=== PATIENT | male | born 1960 | race Caucasian/White ===

== ENCOUNTER 2016-07-28 21:22 | Emergency (ER) | payer SELFPAY ==
[2016-07-28 21:32] VITALS: RESP 18
[2016-07-28] MEDS ORDERED: Sodium Chloride 0.9% 1,000 ML IV ONE (22:03)
[2016-07-28] MEDS ORDERED: Iohexol 240 (50 ml) PO ONE (22:05)
--- NOTE | 2016-07-28 22:13 | C.PDOC ---
History Of Present Illness 56 year old male presents to the ED with complaints of generalized abdominal pain that began yesterday with associated diarrhea. Patient denies vomiting, dysuria, or hematuria. Chief Complaint (Nursing): Abdominal Pain History Per: Patient History/Exam Limitations: no limitations Onset/Duration Of Symptoms: Days (began yesterday) Current Symptoms Are (Timing): Still Present Location Of Pain/Discomfort: Diffuse Radiation Of Pain To:: None Quality Of Discomfort: "Pain" Associated Symptoms: Diarrhea. denies: Fever, Chills, Nausea, Vomiting Recent travel outside of the [place]: No Past Medical History Reviewed: Historical Data, Nursing Documentation, Vital Signs Vital Signs: Last Vital Signs Temp 97.6 F 07/29/16 01:35 Pulse 73 07/29/16 01:35 Resp 18 07/29/16 01:35 BP 113/71 07/29/16 01:35 Pulse Ox 100 07/29/16 01:36 - Medical History PMH: COPD, Emphysema Family History: States: Unknown Family Hx - Social History Hx Alcohol Use: No Hx Substance Use: No Review Of Systems Constitutional: Negative for: Fever, Chills, Sweats Cardiovascular: Negative for: Chest Pain, Palpitations Respiratory: Negative for: Cough, Shortness of Breath Gastrointestinal: Positive for: Abdominal Pain, Diarrhea. Negative for: Nausea , Vomiting Genitourinary: Negative for: Dysuria, Hematuria Neurological: Negative for: Headache Physical Exam - Physical Exam Appears: Non-toxic, In Acute Distress (patient appears to be in pain) Skin: Warm, Dry Head: Atraumatic Oral Mucosa: Moist Neck: Supple Chest: Symmetrical, No Deformity Cardiovascular: Rhythm Regular Respiratory: No Rales, No Rhonchi, No Stridor, No Wheezing Gastrointestinal/Abdominal: Soft, Tenderness (tenderness to the mid-abdominal region), No Mass (no palpable abnormal mass upon examination ), No Distention, No Guarding, No Rebound, Other (presence of bilateral inguinal hernia,left sided slightly firm.) Extremity: Normal ROM, No Tenderness Neurological/Psych: Oriented x3 ED Course And Treatment - Laboratory Results Result Diagrams: 07/28/16 22:17 07/28/16 22:17 O2 Sat by Pulse Oximetry: 100 (room air) - CT Scan/US CT Abdomen and Pelvis With Intravenous Contrast Other Rad Studies (CT/US): Interpreted By Me, Read By Radiologist CT/US Interpretation: IMPRESSION: 1. High suspicion for colitis and/or enterocolitis. 2. Bilateral fat containing inguinal hernias, left larger than right, with induration of the fat. Please. correlate whether these may contribute to symptoms. Normal appendix. No hydronephrosis. Incompletely characterized left renal lesions at least one of which measures solid Hounsfield units. within limits of the study. Lung findings as above. Please refer to the final report, as additional comparisons or other additional information may be. available at that time. Progress Note: On re-evaluation patient is asymptomatic. Exam shows bilateral hernia that is not obstructed and no tenderness. Patient now states feeling mild epigastric pain. Reduction of left inguinal hernia performed. Reevaluation Time: 01:00 Reassessment Condition: Improved Disposition Counseled Patient/Family Regarding: Diagnosis - Disposition Referrals: Sury Davis MD [Primary Care Provider] - Disposition: HOME/ ROUTINE Disposition Time: 01:24 Condition: STABLE Prescriptions: Ranitidine HCl [Zantac] 150 mg PO BID #30 tablet Instructions: Gastritis (GEN), Inguinal Hernia (ED), Abdominal Pain (ED) - POA Present On Arrival: None - Clinical Impression Clinical Impression: Abdominal pain, Gastritis, Inguinal hernia, bilateral - Scribe Statement The provider has reviewed the documentation as recorded by the Izabellaibjessica Guevara All medical record entries made by the Izabellaibjessica were at my direction and personally dictated by me. I have reviewed the chart and agree that the record accurately reflects my personal performance of the history, physical exam, medical decision making, and the department course for this patient. I have also personally directed, reviewed, and agree with the discharge instructions and disposition.
[2016-07-28 22:20] LABS: BASO % 0.5 % (0.0-2.0); EOS # 0.3 K/uL (0.0-0.7); EOS % 3.3 % (0.0-4.0); HEMATOCRIT 42.3 % (35.0-51.0); LYMPH # 2.6 K/uL (1.0-4.3); LYMPH % 30.9 % (20.0-40.0); MEAN CELL VOLUME 78.1 fL (80.0-94.0); MEAN CORPUSCULAR HEMOGLOBIN 25.7 pg (27.0-31.0); MEAN CORPUSCULAR HGB CONC 32.9 g/dL (33.0-37.0); MEAN PLATELET VOLUME 8.1 fL (7.2-11.7); MONO # 0.7 K/uL (0.0-0.8); MONO % 7.8 % (0.0-10.0); NRBC % 0.1 % (0.0-2.0); RED CELL DISTRIBUTION WIDTH 13.4 % (11.5-14.5); WHITE BLOOD COUNT 8.6 K/uL (4.8-10.8)
[2016-07-28] MEDS ORDERED: Iohexol 240 (50 ml) ONE (22:22)
[2016-07-28] MEDS ORDERED: Sodium Chloride 0.9% 1,000 ML ONE (22:22)
[2016-07-28 22:28] LABS: CHLORIDE 97 mmol/L (98-107); POTASSIUM 2.6 mmol/L (3.6-5.2); SODIUM 134 mmol/L (132-148)
[2016-07-28 22:30] LABS: BILIRUBIN,TOTAL 0.7 mg/dL (0.2-1.3); CARBON DIOXIDE 27 mmol/L (22-30); GFR AFRICAN-AMERICAN > 60
[2016-07-28 22:31] LABS: ALB/GLOB RATIO 1.4 (1.0-2.1); ALKALINE PHOSPHATASE 43 U/L (38-126); ALT/SGPT 20 U/L (21-72); AST/SGOT 21 U/L (17-59); BLOOD UREA NITROGEN 19 mg/dL (9-20); CALCIUM 9.1 mg/dl (8.6-10.4); GLUCOSE,RANDOM 102 mg/dL (75-110); TOTAL PROTEIN 6.8 g/dL (6.3-8.3)
[2016-07-28] MEDS ORDERED: Iodixanol 320 MG/ML 100 ML BOTTLE IV ONE (23:04)
[2016-07-29 01:02] LABS: RBC URINE < 1 /hpf (0-3); URINE BILIRUBIN NEGATIVE (NEGATIVE); URINE BLOOD NEGATIVE (NEGATIVE); URINE COLOR Straw (YELLOW); URINE GLUCOSE (UA) NORMAL (Normal); URINE KETONE NEGATIVE (NEGATIVE); URINE LEUKOCYTE ESTERASE NEG Leu/uL (Negative); URINE PROTEIN NEGATIVE (NEGATIVE); URINE UROBILINOGEN NORMAL mg/dL (0.2-1.0); WBC URINE < 1 /hpf (0-5)
[2016-07-29 01:35] VITALS: BP 113/71; PULSE 73; TEMP 97.6
[2016-07-29 01:37] VITALS: O2SAT 100
--- NOTE | 2016-07-29 09:47 | CT ---
PROCEDURE: CT Abdomen and Pelvis with contrast HISTORY: severe abd pain-mostly on bilateral lower quadrant COMPARISON: None. TECHNIQUE: Contrast dose: 100 mL Visipaque 320 Radiation dose: Total exam DLP = 313.11 mGy-cm. This CT exam was performed using one or more of the following dose reduction techniques: Automated exposure control, adjustment of the mA and/or kV according to patient size, and/or use of iterative reconstruction technique. FINDINGS: LOWER THORAX: 5 mm subpleural nodule in anterior segment right upper lobe. No followup evaluation required as per Fleischner society criteria. Minimal dependent atelectasis right lower lobe, posterior. LIVER: Unremarkable. No gross lesion or ductal dilatation. GALLBLADDER AND BILE DUCTS: Unremarkable. PANCREAS: Unremarkable. No gross lesion or ductal dilatation. SPLEEN: Unremarkable. ADRENALS: Unremarkable. No mass. KIDNEYS AND URETERS: Two rounded low-density left renal masses, 2.2 cm upper pole measuring 30 Hounsfield units and 1.8 cm left lower pole, measuring 19 Hounsfield units. Correlation with ultrasound on a nonemergent basis is advised. No calculus or hydronephrosis. VASCULATURE: Unremarkable. No aortic aneurysm. BOWEL: Circumferential mural thickening of the descending and sigmoid colon consistent with nonspecific colitis. No bowel obstruction. No other abnormal bowel loops. APPENDIX: Normal appendix. PERITONEUM: Small umbilical hernia containing only fat. Left inguinal hernia containing mesenteric fat. No herniated bowel. LYMPH NODES: Unremarkable. No enlarged lymph nodes. BLADDER: Unremarkable. REPRODUCTIVE: Normal prostate BONES: No acute fracture. Mild lumbar dextroscoliosis. Right mis sacralization right L5 vertebra. Developmental variant. OTHER FINDINGS: None. IMPRESSION: Nonspecific colitis involving descending and sigmoid colon. Rule out infectious etiology. Left inguinal hernia containing mesenteric fat. Two low-density left renal masses, borderline attenuation for simple cysts. Recommend correlation with non emergent ultrasound examination. Preliminary interpretation of this examination was reported by [facility] at 1:02 a.m. on 07/29/2016. There is concurrence of this report with the preliminary interpretation.
== END 2016-07-29 01:35 | disposition home or self-care (01) ==
LOC: SUPCPDRO 21:22 → C.ER 21:22
DX: K29.70 Gastritis, unspecified, without bleeding (principal); K40.20 Bilateral inguinal hernia, without obstruction or gangrene, not specified as recurrent
CPT/HCPCS: 74177; 80053; 81001; 83690; 85025; 96361; 96374; 96375; 99283; J1170; J2405; J2765; J3480; J7040; Q9966; Q9967